=== PATIENT | male | born 2000 | race Asian ===

== ENCOUNTER 2022-07-08 03:55 | Emergency (ER) | payer MEDICAID ==
[~2022-07-08] VITALS: Ht 172.7 cm; Wt 65.9 kg
[2022-07-08 04:30] VITALS: BP 134/80
== END 2022-07-08 04:32 | disposition home or self-care (01) ==
LOC: ER 03:56
DX: Z02.89 Encounter for other administrative examinations (principal); F31.9 Bipolar disorder, unspecified; Z98.890 Other specified postprocedural states; Z79.899 Other long term (current) drug therapy
CPT/HCPCS: 99284